=== PATIENT | female | born 1955 | race Two or more races ===

== ENCOUNTER 2018-07-26 06:35 | Day surgery (SDC) | payer MEDICAID ==
--- NOTE | 2018-07-24 11:22 | Pre-Procedure Note/Attestation ---
Pre-Procedure Note/Attestation Complete Prior to Procedure Planned Procedure: right Procedure Narrative: PHACO WITH IOL Indications for Procedure Pre-Operative Diagnosis: CATARACT Attestation I attest that I discussed the nature of the procedure; its benefits; risks and complications; and alternatives (and the risks and benefits of such alternatives ), prior to the procedure, with the patient (or the patient's legal home furnishings sales representative). I attest that, if there was a reasonable possibility of needing a blood transfusion, the patient (or the patient's legal home furnishings sales representative) was given the [facility] standardized written summary, pursuant to the [place] Blood Safety Act ([place] Health and Safety Code # 1645, as amended). I attest that I re-evaluated the patient just prior to the surgery and that there has been no change in the patient's H&P, except as documented below: Ashok Moyer MD Jul 24, 2018 11:22
--- NOTE | 2018-07-24 11:23 | Opthalmology H&P ---
Ophthalmology H&P H&P Chief Complaint: decreased vision in right eye HPI Vision Affects Ability to: read, focus/use eyes together, manage personal affairs HPI Narrative BLURRY VISION Exam Visual Acuity: OD; CF OS; 20/40 Tension: OD;16 OS;15 Eye Exam: normal OU: external exam, palpebral fissure-width, marginal reflex distance, levator function, corneas, anterior chambers, fundus exam; findings: lens - OD;NS OS;NS Assessment/Plan Diagnosis: (1) Nuclear sclerosis of right eye Treatment Plan: cataract extraction w/ lens implant Goals of Treatment: improvement of vision, enhance quality of life Attestation Attestation The risks and benefits of the surgery as well as alternative procedures were explained to the patient in detail. Ashok Moyer MD Jul 24, 2018 11:23
[2018-07-26] VITALS (8 sets, daily range): BP systolic 104–149; BP diastolic 56–78
[~2018-07-26] VITALS: Ht 157.5 cm; Wt 81.6 kg
[2018-07-26] MEDS ORDERED: Tetracaine 0.5% Opth 4ml Soln RIGHT EYE ONE (07:00)
[2018-07-26] MEDS ORDERED: Proparacaine 0.5% Opth Soln 15ml RIGHT EYE ONE (07:00)
[2018-07-26] MEDS ORDERED: Akten 3.5% 1ml Btl RIGHT EYE ONE (07:00)
[2018-07-26] MEDS ORDERED: Dexamethasone 4mg/ml vial ONE (11:00)
[2018-07-26] MEDS ORDERED: Pred Forte 1% Opth Susp 1ml ONE (11:00)
[2018-07-26] MEDS ORDERED: Pilocarpine 2% Opth 15ml Soln ONE (11:00)
[2018-07-26] MEDS ORDERED: Maxitrol Opth Oint 3.5gm ONE (11:00)
[2018-07-26] MEDS: Diclofenac Sod 0.1% Op Soln RIGHT EYE SCH ×3 (11:04→11:26)
[2018-07-26] MEDS: Phenylephrine 10% Opth Soln 5ml RIGHT EYE SCH ×3 (11:05→11:26)
[2018-07-26] MEDS: Tobramycin Op Soln 0.3% 5ml RIGHT EYE SCH ×3 (11:05→11:26)
[2018-07-26] MEDS: Cyclopentolate 1% Opth Sol 2ml RIGHT EYE SCH ×3 (11:05→11:26)
[2018-07-26] MEDS: Tropicamide 1% Opth 15ml Soln RIGHT EYE SCH ×3 (11:05→11:26)
[2018-07-26] MEDS ORDERED: ASPIRIN81 MG ORAL (11:14)
[2018-07-26] MEDS ORDERED: LOSARTAN POTASS50 MG ORAL (11:14)
[2018-07-26] MEDS ORDERED: ATENOLOL50 MG ORAL (11:14)
[2018-07-26] MEDS ORDERED: NS Irrig 1000ml ONE (11:30)
[2018-07-26] MEDS ORDERED: Sterile Water Irrig 1000ml IRRIG ONE (11:30)
[2018-07-26] MEDS ORDERED: fentaNYL 100 mcg/2 mL IV ONE (11:30)
[2018-07-26] MEDS ORDERED: Propofol 200mg/20ml IV ONE (11:30)
[2018-07-26] MEDS ORDERED: LR 1000ml ONE (11:30)
[2018-07-26] MEDS ORDERED: Midazolam 2mg/2ml Inj ONE (11:35)
[2018-07-26] MEDS ORDERED: LR 1000ml 1,000 ML IVLG SCH (11:53)
--- NOTE | 2018-07-26 11:53 | Anethesia Preoperative Eval ---
Anesthesia Pre-op PMH/ROS General Date of Evaluation: Jul 26, 2018 Time of Evaluation: 11:20 Anesthesiologist: Cynthia ASA Score: ASA 2 Mallampati Score Class I : Soft palate, uvula, fauces, pillars visible Class II: Soft palate, uvula, fauces visible Class III: Soft palate, base of uvula visible Class IV: Only hard plate visible Mallampati Classification: Class II Surgeon: Comfort Diagnosis: R eye cataract Surgical Procedure: R eye cataract extraction Anesthesia History: none Family History: no anesthesia problems Allergies: Coded Allergies: No Known Allergies (Unverified , 07/24/18) Medications: see eMAR Patient NPO?: Yes Past Medical History Cardiovascular: Reports: HTN; Denies: CAD, VA, valve dz, arrhythmia, other Pulmonary: Denies: asthma, COPD, ELIEL, other Gastrointestinal/Genitourinary: Reports: GERD; Denies: CRI, ESRD, other Neurologic/Psychiatric: Denies: dementia, CVA, depression/anxiety, TIA, other Endocrine: Denies: DM, hypothyroidism, steroids, other HEENT: Reports: cataract (L), cataract (R); Denies: glaucoma, [place] (L), [place] (R), other Hematology/Immune: Denies: anemia, DVT, bleeding disorder, other Musculoskeletal/Integumentary: Denies: OA, RA, DJD, DDD, edema, other Other: other - overweight PMH Narrative: as above PSxH Narrative: see chart Anesthesia Pre-op Phys. Exam Physician Exam Last Vital Signs Date Time Temp Pulse Resp B/P (MAP) Pulse Ox O2 Delivery O2 Flow Rate FiO2 07/26/18 11:29 Room Air 07/26/18 11:24 97.2 60 18 149/71 100 Constitutional: NAD Neurologic: CN 2-12 intact Cardiovascular: RRR, no M/R/G Respiratory: CTA Gastrointestinal: S/NT/ND Airway Exam Mallampati Score: Class II MO: full Neck: flexible ROM: full Teeth: missing Dentures: no upper, no lower Anesthesia Pre-op A/P Labs see chart Studies Pre-op Studies: EKG - NSR Risk Assessment & Plan Assessment: ASA 2 Plan: MAC Pre-Antibiotics Drug: none Ender Marie MD Jul 26, 2018 11:53
[2018-07-26] MEDS ORDERED: fentaNYL 100 mcg/2 mL IV PRN (12:00)
--- NOTE | 2018-07-26 12:23 | Immediate Post-Op Evaluation ---
Immediate Post-Op Evalulation Immediate Post-Op Evalulation Procedure: R eye cataract extraction with IOL Date of Evaluation: Jul 26, 2018 Time of Evaluation: 12:22 IV Fluids: 300 Blood Products: none Estimated Blood Loss: none Urinary Output: none Blood Pressure Systolic: 128 Blood Pressure Diastolic: 64 Pulse Rate: 68 Respiratory Rate: 20 O2 Sat by Pulse Oximetry: 99 Temperature (Fahrenheit): 97.4 Pain Score (1-10): 1 Nausea: No Vomiting: No Complications none Patient Status: awake, patent, none Hydration Status: adequate Ender Marie MD Jul 26, 2018 12:23
[2018-07-26] MEDS ORDERED: EPINEPHrine 1mg/1ml Amp ONE (14:50)
[2018-07-26] MEDS ORDERED: BSS 500ml btl ONE (14:51)
[2018-07-26] MEDS ORDERED: Sodium Hyaluronate 14 mg/ml 0.85ml ONE (14:51)
[2018-07-26] MEDS ORDERED: BSS 15ml BTL ONE (14:51)
--- NOTE | 2018-07-27 13:04 | Brief Operative Note ---
Immediate Post Operative Note Operative Note Chief Complaint: blurry vision Pre-op Diagnosis: CATARACT, OD Procedure: phaco with IOL, OD Post-op Diagnosis: Pseudophakia Post-op Diagnosis: same as pre-op Findings: consistent w/pre-op dx studies Surgeon: Comfort Anesthesiologist: Cynthia Anesthesia: MAC Specimen: none Complications: none Condition: stable Fluids: LR Estimated Blood Loss: none Drains: none Implant(s) used?: Yes Ashok Moyer MD Jul 27, 2018 13:04
--- NOTE | 2018-07-27 13:05 | Operative Note - PDOC ---
Operative Note Operative Note Date of Operation/Procedure: Jul 26, 2018 Chief Complaint: blurry vision Pre-op Diagnosis: CATARACT, OD Procedure: phaco with IOL, OD Post-op Diagnosis: Pseudophakia Post-op Diagnosis: same as pre-op Operative Findings: consistent w/pre-op dx studies Surgeon: Comfort Anesthesiologist: Cynthia Anesthesia: MAC Specimen: none Complications: none Condition: stable Fluids: LR Estimated Blood Loss: none Drains: none Implant(s) used?: Yes Indications for Procedure cataract Description of Procedure This patient has been complaining visually significant cataract in the affected eye with the best corrected visual acuity under moderate glare conditions worse. The patient complains of difficulties with glare in performing activities of daily living and wants to manage personal affairs with comfort and accuracy and see well enough to move with safety at home and outdoors. The risks, benefits and alternatives of the procedure were discussed with the patient in the office prior to scheduling surgery. All questions from the patient were answered after the surgical procedure was explained in detail. The risks of the procedure as explained to the patient include, but are not limited to, pain, infection, bleeding, loss of vision, retinal detachment, need for further surgery, loss of lens nucleus, double vision, etc. Alternative procedures were discussed which include, to do nothing or seek a second opinion. Informed consent for this procedure was obtained from the patient. The patient was referred to a primary care physician for a cardiopulmonary clearance prior to surgery, after proper evaluation was done patient was properly scheduled for outpatient surgery. The patient was brought to the operating room where the anesthesiologist established I.V. lines and cardiac monitoring leads. Mild intravenous sedation was administered. The patient was then prepared with a 5% solution of povidone -iodine to the conjunctival fornix and lashes, and a 5% solution of povidone- iodine to the lids and periorbital skin. The patient was then draped in the usual sterile fashion. A lid speculum was then placed in the operative eye. A keratome blade was then used to create a biplanar incision into the anterior chamber. Viscoelastics was then instilled into the anterior chamber. A capsulorrhexis was then fashioned with an utrata forceps followed by a BSS and a cannula were then used to hydrodissect and hydro delineate the lens. Paracentesis incision was made at 3 o'clock with sharp blade. The phacoemulsification unit, after being properly adjusted and tested, was then used to emulsify the nucleus then the residual cortical material was aspirated with the irrigation and aspiration unit. Healon was then instilled into the anterior chamber. The corneal wound was then enlarged to the size of the optic with the rocio keratome blade. The intraocular lens was then inspected for right power and size and thought to be satisfactory. Then the lens was gently placed in the capsular bag. Positioning within the capsular bag was confirmed by direct visualization. Optic centration was accomplished with a [place] hook. Viscoelastics was removed from the anterior chamber using the irrigation and aspiration unit. The corneal wound was then tested for leaks and none were found. The lid speculum were then removed. Sponge and needle counts were correct. An eye patch and shield were placed over the operative eye. The patient was taken to the recovery room in stable condition. There were no complications. The patient tolerated the procedure well. The patient was then transferred to the ambulatory surgery unit in stable and satisfactory condition , was given detailed written instructions and asked to follow up in the office the next day. Ashok Moyer MD Jul 27, 2018 13:05
== END 2018-07-26 13:30 | disposition home or self-care (01) ==
LOC: SUR 06:35
DX: H25.11 Age-related nuclear cataract, right eye (principal); I10 Essential (primary) hypertension; E11.9 Type 2 diabetes mellitus without complications; E66.3 Overweight
CPT/HCPCS: 66984; J0171; J1100; J2250; J2704; J3010; J3370; V2632; Z7512; 94003; 94150